=== PATIENT | female | born 1965 | race Caucasian/White ===

== ENCOUNTER → 2016-07-31 | Outpatient (CLI) | payer OTHER | LOC: FIMAGING 07:48 | PROVIDERS: ATTEND Nurse Practitioner | DX: E83.52 Hypercalcemia (principal); D47.2 Monoclonal gammopathy; M25.551 Pain in right hip; M79.641 Pain in right hand; M79.671 Pain in right foot; Z85.42 Personal history of malignant neoplasm of other parts of uterus; Z90.710 Acquired absence of both cervix and uterus | CPT/HCPCS: 78306; A9503 ==